=== PATIENT | male | born 1995 | race Caucasian/White ===

== ENCOUNTER 2018-06-24 17:51 | Emergency (ER) | payer SELFPAY ==
[~2018-06-24] VITALS: Ht 193 cm; Wt 82.6 kg
[2018-06-24 18:01] VITALS: BP 107/56; Ht 193 cm; Wt 82.6 kg
== END 2018-06-24 18:56 | disposition home or self-care (01) ==
LOC: ED 17:51
DX: J02.9 Acute pharyngitis, unspecified (principal); J40 Bronchitis, not specified as acute or chronic

== ENCOUNTER 2019-06-03 18:35 | Emergency (ER) | payer OTHER ==
[~2019-06-03] VITALS: Ht 188 cm; Wt 82.6 kg
[2019-06-03 19:30] VITALS: Ht 188 cm; Wt 82.6 kg
[2019-06-03 20:27] VITALS: BP 117/62
== END 2019-06-03 20:27 | disposition home or self-care (01) ==
LOC: ED 18:35
DX: S62.606A Fracture of unspecified phalanx of right little finger, initial encounter for closed fracture (principal); W23.0XXA Caught, crushed, jammed, or pinched between moving objects, initial encounter; Y93.69 Activity, other involving other sports and athletics played as a team or group; Y92.89 Other specified places as the place of occurrence of the external cause; Y99.8 Other external cause status

== ENCOUNTER 2019-06-27 21:02 | Emergency (ER) | payer OTHER ==
[~2019-06-27] VITALS: Ht 188 cm; Wt 82.1 kg
[2019-06-27 21:11] VITALS: Ht 188 cm; Wt 82.1 kg
[2019-06-27 21:55] VITALS: BP 149/70
== END 2019-06-27 21:55 | disposition home or self-care (01) ==
LOC: ED 21:02
DX: J18.9 Pneumonia, unspecified organism (principal)